=== PATIENT | female | born 1995 | race Caucasian/White ===

== ENCOUNTER 2020-10-02 13:34 | Outpatient (CLI) | payer OTHER, SELFPAY ==
--- NOTE | ~2020-10-02 | US_ITS ---
EXAMINATION: US OB follow up DATE: 10/02/2020 14:07 INDICATION: Routine care, third trimester TECHNIQUE: Real-time ultrasound of the pelvis was performed. The interpreting radiologist was not pre sent for the study. COMPARISON: None. FINDINGS: There is a single living fetus in vertex presentation. The placenta is anterior. card iac activity and movement are noted. heart rate is 136 beats per minute (bpm). The amniot ic fluid index is subjectively normal. The following biometric data were obtained: Biparietal diameter (BPD): 8.5 cm; head circumference (HC): 30.0 cm; abdominal circumference (AC): 27 .9 cm; femur length (FL): 6.3 cm. These measurements are concordant. Estimated weight is 1993 g +/- 298 g, which correlates with the 30th percentile when 11/21/2020 is used as estimated date of delivery. As single measurements, these parameters are each equal to the following estimated gestational ages w ith ranges of +/- 2 standard deviations: BPD: 34 weeks 3 days +/- 3 weeks 1 days. HC: 33 weeks 3 days +/- 3 weeks 0 days. AC: 32 weeks 0 days +/- 3 weeks 0 days. FL: 32 weeks 4 days +/- 3 weeks 0 days. estimated gestational age based solely on measurements from this exam is 33 weeks 1 days +/- 2 weeks 2 days. IMPRESSION: 1. Single living fetus in vertex presentation. 2. Estimated weight is 1993 g +/- 298 g, which correlates with the 30th percentile when 11/22/19 21 is used as estimated date of delivery. Reviewed, dictated and finalized at location A. IMPRESSION: 1. Single living fetus in vertex presentation. 2. Estimated weight is 1993 g +/- 298 g, which correlates with the 30th p ercentile when 11/21/2020 is used as estimated date of delivery.
== END 2020-10-02 13:35 | disposition home or self-care (01) ==
PROVIDERS: PCP Obstetrics & Gynecology; Visit Provider Obstetrics & Gynecology
DX: Z34.90 Encounter for supervision of normal pregnancy, unspecified, unspecified trimester (principal)
CPT/HCPCS: 76816

== ENCOUNTER 2020-11-06 04:40 | Inpatient (IN) | payer OTHER, SELFPAY ==
[2020-11-06] VITALS (177 sets, daily range): BP systolic 80–131; BP diastolic 51–96; PULSE 34–131; RESP 16; TEMP 35.5–37.3; O2SAT 96–100; BMI 24.7
--- NOTE | 2020-11-06 05:26 | LDADM ---
This patient, Shawna Martin, was admitted to Labor/Delivery/Recovery 103 on 11/06/20 at 04:40. Plans for labor, pain management and were discussed with patient. Patient/family oriented to hospital policies and general routines including ID bracelet, bed and alarms, visiting hours, pain management, procedures, bathroom and other care routines, personal items, smoking policy, room service/diet and guest tray routines, security routines, and visiting hours. Patient/Family are encouraged to report perceived risks to care and to ask questions if they do not understand what they are told or what they should do. See OBIX for further documentation.
[2020-11-06 05:28] LABS: Basophils Percent Auto 0.2 % (0.2-1.2); Eosinophils Absolute Auto 0.1 K/mm3 (0-0.3); Eosinophils Percent Auto 1.2 % (0-4.4); Hematocrit 29.8 % (37.0-47.0); Hemoglobin 9.6 g/dL (12.0-15.0); Immature Granulocyte Absolute 0.06 K/mm3 (0.00-0.031); Immature Granulocyte Percent A 0.6 % (0-0.5); Immature Platelet Fraction Pct 27.6 % (0.9-11.2); Lymphocytes Absolute Auto 2.03 K/mm3 (0.9-3.2); Lymphocytes Percent Auto 21.8 % (18.3-44.2); Mean Corpuscular HGB Conc 32.2 g/dl (32-36); Mean Corpuscular Volume 83.7 fl (80-100); Mean Platelet Volume 14.2 fl (7.4-10.4); Monocytes Absolute Auto 0.8 K/mm3 (0.1-0.6); Monocytes Percent Auto 8.7 % (2.6-8.5); Neutrophils Absolute Auto 6.3 K/mm3 (1.3-6.7); Neutrophils Percent Auto 67.5 % (45.5-73.1); Platelet Count Result 136 k/mm3 (150-375); Red Blood Count 3.56 M/mm3 (4.2-5.4); Red Cell Distribution Width 12.6 % (11.5-14.5); White Blood Count 9.3 K/mm3 (4.5-10.0)
--- NOTE | 2020-11-06 06:12 | PM.IMHP ---
H&P: HPI History of Present Illness Date/Time: 11/06/20 06:12 25yo, WF, with h/o of asthma, hyperthyroidism, hypercholesterolemia, PCOS, depression, ADHD who has CHOLESTASIS OF at 38weeks EGA. Patient is now being admitted for induction of labor per [facility] recommendations. I have explained her condition procedure and risk involved including but not limited to bleeding, infection, injury to bladder bowel baby, dvt, pneumonia wound infection uti shoulder dystocia post hemorrhage and the risk of anethesia. She understands accepts and agrees to proceed. 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 Dr Ochoa, [facility], yes to epidural, Baby girl name is CARMELA Chief Complaint: term , cholestasis and HELLP syndrome Review of Systems Review of Systems: All systems reviewed & are unremarkable except as noted in HPI and below Constitutional: Constitutional: Reports no additional constitutional complaints Eyes: Eyes: Reports no additional eye complaints ENT: Reports system reviewed and no additional complaints, except as documented Cardiovascular: Cardiovascular: Reports no additional cardiovascular complaints Respiratory: Respiratory: Reports no additional respiratory complaints Gastrointestinal: Gastrointestinal: Reports no additional gastrointestinal complaints Genitourinary: Genitourinary: Reports no additional female genitourinary complaints Musculoskeletal: Musculoskeletal: Reports no additional musculoskeletal complaints Integumentary/Breasts: Skin/Breast: Reports pruritus, Reports new lesions and Reports rash Neurologic: Reports system reviewed and no additional complaints, except as documented Psychiatric: Psychiatric: Reports no additional psychiatric complaints Endocrine: Endocrine: Reports no additional endocrine complaints Hematologic/Lymphatic: Hematologic/Lymphatic: Reports no additional hematologic/lymphatic complaints Allergic/Immunologic: Allergic/Immunologic: Reports no additional allergic/immunologic complaints [facility] Past Medical History Medical History (Updated 11/06/20 @ 07:12 by Davidson Ribeiro MD) ADHD Asthma BV (bacterial vaginosis) Cholestasis during in third trimester Depressive disorder HELLP (hemolytic anemia/elev liver enzymes/low platelets in ) History of hyperthyroidism PCOS (polycystic ovarian syndrome) Term Vaginal delivery 04/11/2017139.26 lbs.11 oz.[facility]inalFull [facility] Family History Family History Mother Family history of obesity Patient's mother is in good health Family history of osteoporosis Asthma Family history of alcoholism Family history of ulcerative colitis Family history of hepatitis Family history of chronic obstructive pulmonary disease Family history of malignant neoplasm of bone Family history of attention deficit hyperactivity disorder (ADHD) Father Family history of blood dyscrasia Family history of mental disorder Hypertension Family history of hepatitis Family history of chronic obstructive pulmonary disease Family history of bipolar disorder Sibling Depression Family history of attention deficit hyperactivity disorder (ADHD) Social History Social History Smoking status: Never smoker Second hand tobacco smoke exposure: No Smoking end date: 05/15/12 Alcohol intake: never Substance use: current Living arrangements: with family Occupation/Education: unemployed Gender identity (if verbalized by the patient): Female Sexual Orientation (if Verbalized by the Patient): Straight or Heterosexual Spiritual care concerns: No Agree to blood products: Yes Meds Roxane
[2020-11-06] MEDS: LACTATED RINGERS 1,000 ML 125 ML IV CONT ×3 (06:34→16:04)
--- NOTE | 2020-11-06 06:34 | WPDHPUPDATE1 ---
History and Physical Update Update Date/Time: 11/06/20 06:34 History and Physical has been reviewed, including an updated exam of the patient. There are NO changes in the patient's condition. Risks, benefits, and alternatives have been discussed and questions answered. Patient agrees to proceed with procedure. 25yo, WF, with h/o of asthma, hyperthyroidism, hypercholesterolemia, PCOS, depression, ADHD who has CHOLESTASIS OF at 38weeks EGA. Patient is now being admitted for induction of labor per [facility] recommendations. I have explained her condition procedure and risk involved including but not limited to bleeding, infection, injury to bladder bowel baby, dvt, pneumonia wound infection uti shoulder dystocia post hemorrhage and the risk of anethesia. She understands accepts and agrees to proceed. 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
--- NOTE | 2020-11-06 06:34 | WPDOBADMIT ---
Obstetrics - Admit Note Admission Note: record reviewed. No pertinent additions to the history and/or any subsequent changes in the physical findings that are not consistent with the expected course of the were found. Additions to the history and/or subsequent changes in the physical findings follow. None. 25yo, WF, with h/o of asthma, hyperthyroidism, hypercholesterolemia, PCOS, depression, ADHD who has CHOLESTASIS OF at 38weeks EGA. Patient is now being admitted for induction of labor per [facility] MFM recommendations. I have explained her condition procedure and risk involved including but not limited to bleeding, infection, injury to bladder bowel baby, dvt, pneumonia wound infection uti shoulder dystocia post hemorrhage and the risk of anethesia. She understands accepts and agrees to proceed. 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
[2020-11-06] MEDS: OXYTOCIN 30 UNITS/NS 500 ML 30 UNITS/500 ML BAG IV CONT (06:35)
[2020-11-06] MEDS: ONDANSETRON INJ 4 MG/2 ML VIAL IV PUSH (07:50)
[2020-11-06 07:59] LABS: Amphetamine Screen Urine Negative (Negative); Barbiturate Screen Urine Negative (Negative); Benzodiazepines Screen Urine Negative (Negative); Cannabinoid Screen Urine Positive (Negative); Cocaine Screen Urine Negative (Negative); Methadone Screen Urine Negative (Negative); Opiate Screen Urine Negative (Negative); Phencyclidine Screen Urine Negative (Negative)
[2020-11-06 09:27] LABS: Rapid Plasma Reagin Non-Reactive (NonReactive)
--- NOTE | 2020-11-06 09:28 | WPDANESEPPF ---
Anes - Initial Pre Proc Eval Date/Time: 11/06/20 09:28 Surgeon: Davidson Ribeiro MD Pre Op Diagnosis: Induction of Labor Patient Data Age: 25 Gender: F Height: Weight: Last Vital Signs Temp 36.8 C 11/06/20 06:59 Pulse 55 L 11/06/20 09:01 BP 122/84 11/06/20 09:01 Allergies Allergy/AdvReac Type Severity Reaction Status Date / Time No Known Allergies Allergy Unverified 07/22/19 12:44 Laboratory Tests 11/06/20 11/06/20 11/06/20 05:11 05:11 05:11 WBC 9.3 K/mm3 K/mm3 (4.5-10.0) RBC 3.56 M/mm3 L M/mm3 (4.2-5.4) Hgb 9.6 g/dL L g/dL (12.0-15.0) Hct 29.8 % L % (37.0-47.0) MCV 83.7 fl fl (80-100) MCH 27.0 pg pg (26-34) MCHC 32.2 g/dl g/dl (32-36) RDW 12.6 % % (11.5-14.5) Plt Count 136 k/mm3 L k/mm3 (150-375) MPV 14.2 fl H fl (7.4-10.4) Immature Gran % (Auto) 0.6 % H % (0-0.5) Neut % (Auto) 67.5 % % (45.5-73.1) Lymph % (Auto) 21.8 % % (18.3-44.2) [place] % (Auto) 8.7 % H % (2.6-8.5) Eos % (Auto) 1.2 % % (0-4.4) Baso % (Auto) 0.2 % % (0.2-1.2) Lymph # (Auto) 2.03 K/mm3 K/mm3 (0.9-3.2) [place] # (Auto) 0.8 K/mm3 H K/mm3 (0.1-0.6) Eos # (Auto) 0.1 K/mm3 K/mm3 (0-0.3) Baso # (Auto) 0.0 K/mm3 K/mm3 (0.0-0.1) Abs Immat Gran (auto) 0.06 K/mm3 H K/mm3 (0.00-0.031) Absolute Neuts (auto) 6.3 K/mm3 K/mm3 (1.3-6.7) Absolute Nucleated RBC 0.0 K/mm3 K/mm3 (0.0-0.012) Nucleated RBC % 0.0 % % (0.0-0.2) % Immature Plt Fraction 27.6 % H % (0.9-11.2) Urine Opiates Screen Urine Methadone Screen Ur Barbiturates Screen Ur Phencyclidine Scrn Ur Amphetamine Screen U Benzodiazepines Scrn Urine Cocaine Screen U Cannabinoids Screen RPR Non-reactive (NonReactive) Blood Type B Positive Antibody Screen Negative 11/06/20 06:36 WBC RBC Hgb Hct MCV MCH MCHC RDW Plt Count MPV Immature Gran % (Auto) Neut % (Auto) Lymph % (Auto) [place] % (Auto) Eos % (Auto) Baso % (Auto) Lymph # (Auto) [place] # (Auto) Eos # (Auto) Baso # (Auto) Abs Immat Gran (auto) Absolute Neuts (auto) Absolute Nucleated RBC Nucleated RBC % % Immature Plt Fraction Urine Opiates Screen Negative (Negative) Urine Methadone Screen Negative (Negative) Ur Barbiturates Screen Negative (Negative) Ur Phencyclidine Scrn Negative (Negative) Ur Amphetamine Screen Negative (Negative) U Benzodiazepines Scrn Negative (Negative) Urine Cocaine Screen Negative (Negative) U Cannabinoids Screen Positive A (Negative) RPR Blood Type Antibody Screen Patient hx anesthesia problems: none Family hx anesthesia problems: none PMFSH Past Medical History Medical History (Updated 11/06/20 @ 07:12 by Davidson Ribeiro MD) ADHD Asthma BV (bacterial vaginosis) Cholestasis during in third trimester Depressive disorder HELLP (hemolytic anemia/elev liver enzymes/low platelets in ) History of hyperthyroidism PCOS (polycystic ovarian syndrome) Term Vaginal delivery 04/11/2017139.26 lbs.11 oz.[facility]inalFull [facility] Family [facility] Family History Mother Family history of obesity Patient's mother is in good health Family history of osteoporosis Asthma Family history of alcoholism Family history of ulcerative colitis Family history of hepatitis Family history of chronic obstructive pulmonary disease
--- NOTE | 2020-11-06 09:50 | PM.OBPNLAB ---
Pain Control Date/time seen: 11/06/20 08:50 Pain control: tolerating well Pelvic Exam Dilation (cm): 3 Effacement (%): 50 station: -2 Amniotic membrane status: Intact Contractions Monitor mode: External Contraction frequency: 5 Contraction duration: 45 Contraction pattern: Regular Contraction phase: Contraction Contraction intensity: Strong/Firm Status status: Category l Assessment and Plan Pitocin rate (mU/min): 16 Assessment: active labor Plan: continuous present management
--- NOTE | 2020-11-06 09:58 | PM.OBPNLAB ---
Pain Control Date/time seen: 11/06/20 09:58 Pain control: tolerating well and epidural Pelvic Exam Dilation (cm): 3 Effacement (%): 50 station: -2 Amniotic membrane status: Ruptured (AROM Clear IUPC placed) Contractions Monitor mode: Internal Contraction frequency: 5 Contraction duration: 45 Contraction pattern: Regular Contraction phase: Contraction Contraction intensity: Strong/Firm Status status: Category l Assessment and Plan Pitocin rate (mU/min): 10 Assessment: induction ongoing Plan: continuous present management
[2020-11-06 10:28] LABS: Alanine Aminotransferase 125 U/L (4-35); Albumin Level 2.8 g/dL (3.5-5.1); Alkaline Phosphatase 208 U/L (38-126); Anion Gap 4 mmol/L (8-16); Aspartate Amino Transferase 98 U/L (14-36); Bilirubin,Total 0.5 mg/dL (0.2-1.3); Blood Urea Nitrogen 4 mg/dL (7-17); Calcium 8.4 mg/dL (8.4-10.2); Carbon Dioxide 24 mmol/L (22-30); Chloride 109 mmol/L (98-107); Estimated Glomerular Filt Rate > 60; Glucose 80 mg/dL (65-105); Potassium 2.9 mmol/L (3.4-5.0); Sodium 137 mmol/L (137-145); Uric Acid 5.6 mg/dL (2.5-7.5)
--- NOTE | 2020-11-06 16:26 | PM.OBPNLAB ---
Pain Control Date/time seen: 11/06/20 0432 Pain control: tolerating well and epidural Pelvic Exam Dilation (cm): 10 Effacement (%): 100 station: +2 Amniotic membrane status: Ruptured (AROM Clear IUPC placed) Contractions Monitor mode: Internal Contraction frequency: 2 Contraction duration: 60 Contraction pattern: Regular Contraction phase: Contraction Contraction intensity: Strong/Firm Status status: Category l Assessment and Plan Pitocin rate (mU/min): 20 Assessment: active labor and other ( complete stage I) Plan: continuous present management Comments: begin stage II anticipate vaginal delivery soon
[2020-11-06] MEDS: miSOPROStol 200 MCG TABLET 800 MCG (16:46)
--- NOTE | 2020-11-06 17:07 | PM.OBPRVD ---
OB - Delivery Note Procedure Delivery date: 11/06/20 Procedure: normal spontaneous vertex vaginal delivery a viable female infant and placenta events: Labor Induction Intrapartal events: HELLP Syndrome and Other ( cholestasis of ) Induction method: per pitocin protocol Delivery augmentation: rupture of membranes Delivery monitor: external FHT and internal uterine Route of delivery: Episiotomy description: None Laceration Description: None Specimen: Yes ( placenta, cord blood, cord blood gases) Quantitative Blood Loss (ml): 400 Anesthesia type: Epidural Disposition: floor Complications: none uterine atony treated with internal rectal Cytotec and intramuscular Hemabate Narrative: complete cervical dilation patient prepped in the usual sterile fashion pushed 2nd stage of labor with the normal spontaneous vertex vaginal delivery viable female infant over an intact perineum without difficulty of shoulder delivered and placed onto the maternal abdomen with spontaneous respirations and cry cord clamped and cut. Cord gas obtained cord blood obtained placenta was then delivered spontaneously intact with a three-vessel cord the uterus contracted with massage and blood clots removed from the intrauterine cavity there were no cuts tears or lacerations. Intrarectal Cytotec was given 800 micro g followed by Hemabate 250 micro g intramuscular for uterine atony. Patient tolerated procedure well in labor and delivery room 1. 0 3 stable condition. Counts correct complications none specimens pathology placenta. Baby to nursery in stable condition. Baby Date of : 11/06/20 Time of : 16:35 Weeks of gestation at delivery: 38 Infant gender: Female (NIXLY) Weight (pounds): 7 Weight (ounces): 0 presentation: vertex position: Left Occiput Transverse Placenta delivery description: Spontaneous and Normal Configuration cord vessel description: 3 Vessels score one minute: 7 score five minutes: 9 Narrative: baby cared for by nursery nurse taken to the nursery in stable condition normal transition
[2020-11-06] MEDS: IBUPROFEN 600 MG TABLET PO (19:21)
--- NOTE | 2020-11-06 19:24 | OBPPTRN ---
Patient transferred to post room #283 via wheelchair. Support person present. Oriented to unit, room, information board, rooming in, admission packet and security measures. Patient verbalizes understanding.
[2020-11-06] MEDS: POLYSACCHARIDE IRON COMPLEX 150 MG CAPSULE PO (20:01)
[2020-11-06] MEDS: BENZOCAINE 20% AER SPR (*SP) 56 GM CAN 1 SPRAY TOPICAL (20:02)
[2020-11-06] MEDS: WITCH HAZEL 40 PADS 1 PAD TOPICAL (20:02)
[2020-11-07] VITALS: BP 101/73; PULSE 68; RESP 16; TEMP 36.8; O2SAT 100
[2020-11-07] MEDS: IBUPROFEN 600 MG TABLET PO ×2 (02:05→11:45)
[2020-11-07 04:00] VITALS: BP 102/64; PULSE 75; RESP 16; TEMP 36.7; O2SAT 98
[2020-11-07 05:51] LABS: Hematocrit 25.3 % (37.0-47.0); Hemoglobin 8.2 g/dL (12.0-15.0)
[2020-11-07 06:09] LABS: Alanine Aminotransferase 102 U/L (4-35); Albumin Level 2.4 g/dL (3.5-5.1); Alkaline Phosphatase 172 U/L (38-126); Anion Gap 2 mmol/L (8-16); Aspartate Amino Transferase 98 U/L (14-36); Bilirubin,Total 0.4 mg/dL (0.2-1.3); Blood Urea Nitrogen 3 mg/dL (7-17); Calcium 7.7 mg/dL (8.4-10.2); Carbon Dioxide 23 mmol/L (22-30); Chloride 110 mmol/L (98-107); Estimated CRCL calculation 104 ml/min; Estimated Glomerular Filt Rate > 60; Glucose 67 mg/dL (65-105); Potassium 3.3 mmol/L (3.4-5.0); Sodium 135 mmol/L (137-145)
[2020-11-07 07:45] VITALS: BP 121/74; PULSE 70; RESP 18; TEMP 36.8
--- NOTE | 2020-11-07 08:27 | WPDANLDPN2 ---
Anes-Prog Note L&D Date/Time: 11/07/20 08:27 Comfortable throughout: labor Neuraxial method: epidural Epidural/Spinal procedure site: clean & non-tender Neuro status: Neuro function grossly intact. Cardiovascular status: normal Respiratory status: normal Airway patency: baseline Mental status: baseline Post-Op hydration status: normal Vital Signs: Last Vital Signs Temp 36.7 C 11/07/20 04:00 Pulse 75 11/07/20 04:00 Resp 16 11/07/20 04:00 BP 102/64 11/07/20 04:00 Pulse Ox 98 11/07/20 04:00 Pain score (VAS): none I/O: Intake & Output 11/06/20 11/07/20 11/07/20 23:59 07:59 15:59 Intake Total 1100 Output Total 1165 Balance -65 Post-procedural complaints: none Patient feedback: Patient satisfied with anesthetic care.
--- NOTE | 2020-11-07 08:38 | PM.OBPNVD ---
OB - PN: Subj Subjective Date/time seen: 11/07/20 08:38 Patient comments: no complaints, pain well controlled, tolerating diet and flatus present baby status: doing well feeding status: breast and bottle feeding OB - PN: Obj Data Labs CBC & Chem 7: 11/07/20 05:06 11/07/20 05:06 Labs: Laboratory Results - last 24 hr 11/06/20 11/06/20 11/07/20 05:11 10:07 05:06 Hgb 8.2 L Hct 25.3 L Sodium 137 Potassium 2.9 L Chloride 109 H Carbon Dioxide 24 Anion Gap 4 L BUN 4 L Creatinine 0.70 Estim Creat Clear Calc Not Reportable Estimated GFR > 60 Glucose 80 Uric Acid 5.6 Calcium 8.4 Total Bilirubin 0.5 AST 98 H ALT 125 H Alkaline Phosphatase 208 H Total Protein 6.0 L Albumin 2.8 L RPR Non-reactive 11/07/20 05:06 Hgb Hct Sodium 135 L Potassium 3.3 L Chloride 110 H Carbon Dioxide 23 Anion Gap 2 L BUN 3 L Creatinine 0.60 L Estim Creat Clear Calc 104 Estimated GFR > 60 Glucose 67 Uric Acid Calcium 7.7 L Total Bilirubin 0.4 AST 98 H ALT 102 H Alkaline Phosphatase 172 H Total Protein 5.0 L Albumin 2.4 L RPR OB - PN A/P Assessment and Plan (1) Term delivered: Code(s): O80 - Encounter for full-term uncomplicated delivery Status: Acute (2) HELLP (hemolytic anemia/elev liver enzymes/low platelets in ): Code(s): O14.20 - HELLP syndrome (HELLP), unspecified trimester Status: Acute (3) Cholestasis during in third trimester: Code(s): O26.613 - Liver and biliary tract disorders in , third trimester; K83.1 - Obstruction of bile duct Status: Acute Plan day: 1 Plan: routine care, discharge home and follow up 6 weeks Time Spent With Patient Time: Total time spent is greater than 50% in coordination of care (as documented) at patient's floor/unit and/or counseling patient: Time with patient: less than 15 minutes Review of Systems Review of Systems: All systems reviewed & are unremarkable except as noted in HPI and below Exam Const: General: cooperative, healthy appearing, comfortable, no acute distress, well developed, alert, awake and Physically active Nutritional Appearance: average body habitus Orientation/consciousness: patient oriented x3 Limitations: no limitations HENMT: Head: normal to inspection Eyes: General: appearance normal, both eyes and all related structures Neck: Neck: normal visual inspection Chest: Chest palpation & inspection: normal inspection of the chest Resp: Effort & Inspection: normal respiratory effort Cardio: Rate: regular rate Rhythm: regular rhythm GI: Inspection: normal to inspection GI Palp: Yes Soft to palpation Percussion: Yes normal to percussion Auscultation: normal bowel sounds : External Female Exam: normal external appearance Bimanual exam- vagina & uterus: non-tender Back/Spine/Pelvis: Back: no CVA tenderness Skin: General skin exam: normal color Neuro: General: patient oriented x3, gait normal, tone normal, moves all extremities, Normal light touch and pain sensation, no meningeal signs and no focal motor deficits Extrem: General: normal to inspection and full ROM Psych: Appearance: grossly normal Mental Status: mental status grossly normal Speech and movement: Normal speech and movement present Affect: normal affect Attitude: cooperative Thought process: Normal thought process present
--- NOTE | 2020-11-07 08:42 | PM.OBDSVD ---
DS: Admitting Diagnosis Admitting Diagnosis Admitting Diagnosis: 1) Term : Code(s): Z34.90 - Encounter for supervision of normal , unspecified, unspecified trimester Status: Acute (2) Cholestasis during in third trimester: Code(s): O26.613 - Liver and biliary tract disorders in , third trimester; K83.1 - Obstruction of bile duct Status: Acute (3) Elective induction of labor planned: Status: Acute (4) HELLP (hemolytic anemia/elev liver enzymes/low platelets in ): Code(s): O14.20 - HELLP syndrome (HELLP), unspecified trimester Status: Acute DS: Discharge Diagnosis Discharge Diagnosis (1) Term delivered: Code(s): O80 - Encounter for full-term uncomplicated delivery Status: Acute (2) HELLP (hemolytic anemia/elev liver enzymes/low platelets in ): Code(s): O14.20 - HELLP syndrome (HELLP), unspecified trimester Status: Acute (3) Elective induction of labor planned: Status: Acute (4) Cholestasis during in third trimester: Code(s): O26.613 - Liver and biliary tract disorders in , third trimester; K83.1 - Obstruction of bile duct Status: Acute OB - DS: Summary Hospital Course Time spent discussing smoking cessation with patient: 3 to 10 minutes OB Procedures : Ultrasound OB Procedures Intrapartum: Spontaneous Vag Delivery OB Procedures: : None Peripartum Data Infant Delivery Method: Natural Vaginal Laceration Description: None Episiotomy description: None complications: none Dayhoit 1: Gender: Female (NIXLY) Disposition of : home Status at Discharge Cognitive/behavioral status at discharge: normal Functional status at discharge: independent ambulation Overall status at discharge: patient is back to baseline Time Spent with Patient Time attestation: Total time spent providing and/or coordinating discharge services: Time spent: Less than 30 minutes Exam Const: General: cooperative, healthy appearing, comfortable, no acute distress, well developed, alert, awake and Physically active Nutritional Appearance: average body habitus Orientation/consciousness: patient oriented x3 Limitations: no limitations HENMT: Head: normal to inspection Eyes: General: appearance normal, both eyes and all related structures Neck: Neck: normal visual inspection Chest: Chest palpation & inspection: normal inspection of the chest Resp: Effort & Inspection: normal respiratory effort Cardio: Rate: regular rate Rhythm: regular rhythm GI: Inspection: normal to inspection : External Female Exam: normal external appearance Back/Spine/Pelvis: Back: no CVA tenderness Skin: General skin exam: normal color Neuro: General: patient oriented x3, gait normal, tone normal and moves all extremities Extrem: General: normal to inspection and full ROM Psych: Appearance: grossly normal Mental Status: mental status grossly normal Speech and movement: Normal speech and movement present Affect: normal affect Attitude: cooperative Thought process: Normal thought process present Thought content: Yes Normal thought content present Insight: Good insight present (Psych) Judgement: Good judgement present (Psych) DS: Data Data Completed and Pending Pending studies at discharge: Pending at discharge 11/06/20 16:39 Surgical [PTH] Routine Labs on day of discharge: Labs from last 24 hours 11/07/20 11/07/20 11/06/20 05:06 05:06 10:07 Hgb 8.2 L Hct 25.3 L Sodium 135 L 137 Potassium 3.3 L 2.9 L Chloride 110 H 109 H Carbon Dioxide 23 24 Anion Gap 2 L 4 L BUN 3 L 4 L Creatinine 0.60 L 0.70 Estim Creat Clear Calc 104 Not Reportable Estimated GFR > 60 > 60 Glucose 67 80 Uric Acid 5.6 Calcium 7.7 L 8.4 Total Bilirubin 0.4 0.5 AST 98 H 98 H ALT 102 H 125 H Alkaline Phosphat
--- NOTE | 2020-11-07 10:58 | PCCCNOTE ---
Received referral for positive THC on pt. and baby. Meconium is pending. Met with pt. and father of baby at bedside. Pt. confirms THC use for anxiety. She states having discussed same with her doctor. Pt. lives with father of baby and their 3 year old. They state having all needed items to care for at discharge home. They have support from local family and friends. She denies any history with DCFS. She denies use of any other substances. Reported pt. situation to DCFS and it does not meet criteria for investigation; information will be kept on file. Intake #[id number]. Offered pt. additional resources and she accepted same. Encouraged she contact any/all of interest. Nursing states no further concerns. No further care coordination needs indicated at this time.
[2020-11-07] MEDS: POLYSACCHARIDE IRON COMPLEX 150 MG CAPSULE PO ×2 (11:45→18:53)
[2020-11-07] MEDS: MULTIVIT/MIN/PREN/FOL AC/IRON TABLET 1 TAB PO (11:45)
[2020-11-07] MEDS: DOCUSATE SODIUM 100 MG CAPSULE PO ×2 (11:45→18:53)
[2020-11-07] MEDS: MEASLES,MUMPS,RUBELLA VACCINE 0.5 ML VIAL SUB-Q (11:45)
[2020-11-07 11:52] VITALS: BP 100/59; PULSE 67; RESP 16; TEMP 37.2
[2020-11-07 16:25] VITALS: BP 119/75; PULSE 66; RESP 16; TEMP 36.8
== END 2020-11-07 19:35 | disposition home or self-care (01) | DRG 560 ==
LOC: ANHLDR 04:46 → ANHOB2 19:55
PROVIDERS: Admitting Provider Obstetrics & Gynecology; Visit Provider Obstetrics & Gynecology
DX: O14.24 HELLP syndrome, complicating childbirth (principal); Z37.0 Single live birth; Z3A.37 37 weeks gestation of pregnancy; O26.62 Liver and biliary tract disorders in childbirth; K83.1 Obstruction of bile duct; O99.52 Diseases of the respiratory system complicating childbirth; J45.909 Unspecified asthma, uncomplicated; O99.344 Other mental disorders complicating childbirth; F90.9 Attention-deficit hyperactivity disorder, unspecified type; F32.9 Major depressive disorder, single episode, unspecified; O99.284 Endocrine, nutritional and metabolic diseases complicating childbirth; E28.2 Polycystic ovarian syndrome; E05.90 Thyrotoxicosis, unspecified without thyrotoxic crisis or storm; E78.00 Pure hypercholesterolemia, unspecified; O72.1 Other immediate postpartum hemorrhage
CPT/HCPCS: 36415; 80053; 80307; 84550; 85014; 85018; 85025; 85055; 86592; 86850; 86900; 86901; 88307; 90710; A9270; J2405; J2590; J2795; J7120

== ENCOUNTER 2022-02-22 18:00 | Emergency (ER) | payer OTHER, SELFPAY ==
--- NOTE | ~2022-02-22 | XR_ITS ---
EXAMINATION: XR chest 2V Exam Date/Time: 02/22/2022 19:20 CDT HISTORY: cough, fever X 3 DAYS, MIDSTERNAL CHEST PAIN, HX ASTHMA Comparison: None available. RESULT: Lines, tubes, and devices: None. Lungs and pleura: Diffuse reticular nodular opacities and cuffing. Cardiomediastinal silhouette: Stable. Other: No acute osseous or upper abdominal finding. IMPRESSION: tree-in-bud opacities as can be seen with atypical infection (MAC, TB, fungal), ABPA, airways disease (CF, bronchiectasis), and aspiration. Loculated as. Reviewed, dictated and finalized at location K.
[2022-02-22 18:25] VITALS: BP 103/75; PULSE 68; RESP 18; TEMP 36.5; O2SAT 98
--- NOTE | 2022-02-22 18:31 | ED.FEVER ---
HPI - Fever General Chief Complaint: Fever Stated Complaint: fever/cough Time Seen by Provider: 02/22/22 18:16 History of Present Illness HPI Narrative: 26-year-old female with a history of asthma presents the emergency room with her significant other and 2 children for evaluation of the fever, sinus congestion and postnasal drip, body aches, generalized fatigue. Patient states that she has been experiencing symptoms for 3 days. Has been alternating Tylenol and ibuprofen to alleviate her fever and body aches. Related Data Allergies Allergy/AdvReac Type Severity Reaction Status Date / Time No Known Allergies Allergy Unverified 07/22/19 12:44 Review of Systems Review of Systems: CONSTITUTIONAL: Reports fever, chills, or sweats. EYES: Denies visual changes, redness, or discharge. ENT: Reports rhinorrhea, congestion, sore throat, or otalgia. CARDIOVASCULAR: Denies chest pain, palpitations, or edema. RESPIRATORY: Denies cough or dyspnea. GASTROINTESTINAL: Denies abdominal pain, nausea, vomiting, or diarrhea. GENITOURINARY: Denies dysuria or hematuria. SKIN: Denies rash or itching. MUSCULOSKELETAL: Denies back pain, joint pain, or myalgia. NEUROLOGIC: Denies headache, numbness, dizziness, or weakness. PSYCHIATRIC: Denies anxiety or depression. [facility] Past Medical History Medical History ADHD Asthma BV (bacterial vaginosis) Cholestasis during in third trimester Depressive disorder HELLP (hemolytic anemia/elev liver enzymes/low platelets in ) History of hyperthyroidism PCOS (polycystic ovarian syndrome) Term Vaginal delivery 04/11/2017139.26 lbs.11 oz.[facility]inalFull [facility] Family [facility] Family History Mother Family history of obesity Family history of osteoporosis Asthma Family history of alcoholism Family history of ulcerative colitis Family history of hepatitis Family history of chronic obstructive pulmonary disease Family history of malignant neoplasm of bone Family history of attention deficit hyperactivity disorder (ADHD) Patient's mother is in good health Father Family history of blood dyscrasia Family history of mental disorder Hypertension Family history of hepatitis Family history of chronic obstructive pulmonary disease Family history of bipolar disorder Sibling Depression Family history of attention deficit hyperactivity disorder (ADHD) Social History Social History Smoking status: Never smoker Second hand tobacco smoke exposure: No Smoking end date: 05/15/12 Alcohol intake: never Substance use: current Gender identity (if verbalized by the patient): Female Sexual Orientation (if Verbalized by the Patient): Straight or Heterosexual Spiritual care concerns: No Agree to blood products: Yes Exam Narrative: GENERAL: Ill-appearing, well-nourished, no physical limitations, and in no acute distress. HEAD: Normocephalic, atraumatic. EYES: Conjunctivae normal, PERRLA and EOMI. ENT: External nose normal, Nares clear, no rhinorrhea or epistaxis. Mucous membranes moist. Oropharynx without tonsillar hypertrophy exudate or other lesions. External ears normal, bilateral TMs normal bilaterally NECK: Supple. No adenopathy or masses. CHEST: Clear to auscultation. No respiratory distress. No wheezes rales or rhonchi. HEART: Regular rate and rhythm. No murmur heard. Normal peripheral pulses. ABDOMEN: Soft, nontender, nondistended, normal active bowel sounds. EXTREMITIES: Normal range of motion. No edema. No clubbing or cyanosis SKIN: Warm, dry, no rash. No noted wounds NEURO: No focal deficits. Alert and oriented x3. MAEW. CN's II-XI intact bilaterally, normal gait PSYCH: Cooperative. Normal mood and affect. Course Vital Signs Vital sig
[2022-02-22 19:05] LABS: Influenza A QL RT-PCR Negative (Negative); Influenza B QL RT-PCR Negative (Negative); SARS-CoV-2 RNA PCR Negative
== END 2022-02-22 20:05 | disposition home or self-care (01) ==
PROVIDERS: Emergency Provider Nurse Practitioner Family
DX: J06.9 Acute upper respiratory infection, unspecified (principal); Z20.822 Contact with and (suspected) exposure to COVID-19; F90.9 Attention-deficit hyperactivity disorder, unspecified type; J45.909 Unspecified asthma, uncomplicated; F32.9 Major depressive disorder, single episode, unspecified
CPT/HCPCS: 71046; 87502; 99283; C9803; U0003; U0005

== ENCOUNTER 2023-07-06 21:49 | Emergency (ER) | payer OTHER, SELFPAY ==
--- NOTE | ~2023-07-06 | XR_ITS ---
EXAMINATION: XR chest 2V DATE: 07/06/2023 23:00 INDICATION: Dyspnea. TECHNIQUE: Frontal and lateral views of the chest were obtained. COMPARISON: Chest 2 views 02/22/2022 FINDINGS: There is no pneumonia, pleural effusion, or pneumothorax. The heart size is normal. IMPRESSION: 1. No acute cardiopulmonary disease. Reviewed, dictated and finalized at location E. 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
--- NOTE | ~2023-07-06 | CT_ITS ---
CT Scan of the Chest without Contrast: Clinical Indication: Chest pain Technique: Contiguous sections were acquired throughout the chest without intravenous contrast. Dose reduction technique was used on this scan by utilizing automated exposure control and iterative recon struction technique. The dose-length product (DLP) was 138.40 mGy-cm. Findings: There is no evidence of any significant mediastinal, hilar or axillary lymphadenopathy. The mediastin al soft tissues appear normal. There is no evidence of pleural or pericardial effusion. The lungs are clear. No pulmonary nodules or infiltrates are noted. Images through the upper abdomen reveal no abnormalities. Osseous structures are intact. Impression: No significant abnormalities seen. Reviewed, dictated and finalized at location . 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
[2023-07-06 21:51] VITALS: BP 112/67; PULSE 77; RESP 20; TEMP 36.8; O2SAT 100
--- NOTE | 2023-07-07 02:05 | ECG_ITS ---
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
--- NOTE | 2023-07-07 02:49 | ED.GENADULT ---
HPI - General Adult General Chief complaint: Unspecified <CONCHITA Yun Last Filed: 07/07/23 03:20> Stated complaint: hit in chest by son- hard to breath <CONCHITA Yun Last Filed: 07/07/23 03:20> Time Seen by Provider: 07/06/23 23:59 <Carole Montalvo PA-C - Last Filed: 07/07/23 03:20> Source: patient <CONCHITA Yun Last Filed: 07/07/23 03:20> Mode of arrival: ambulatory <CONCHITA Yun Last Filed: 07/07/23 03:20> Limitations: no limitations <CONCHITA Yun Last Filed: 07/07/23 03:20> History of Present Illness HPI narrative: Patient is a 28-year-old female who presents ED with report of anterior chest pain. Patient reports she was wrestling with her son on Monday when send fell backwards on top of her chest. She complains of pain to her anterior and right-sided chest wall since then, worse with movement and deep breathing. Reports mild difficulty breathing due to pain. Denies feeling short of breath. Patient has been taking ibuprofen for her symptoms with minimal relief. Denies any cough or cold symptoms. Denies any other injuries. <Carole Montalvo PA-C - Last Filed: 07/07/23 03:20> Related Data Allergies/adverse reactions: Allergies Allergy/AdvReac Type Severity Reaction Status Date / Time No Known Allergies Allergy Verified 07/06/23 21:55 <Carole Montalvo PA-C - Last Filed: 07/07/23 03:20> Review of Systems Review of Systems: CONSTITUTIONAL: Denies fever, chills, or sweats. CARDIOVASCULAR: See HPI RESPIRATORY: See HPI. <CONCHITA Yun Last Filed: 07/07/23 03:20> All systems reviewed & are unremarkable except as noted in HPI and below <CONCHITA Yun Last Filed: 07/07/23 03:20> [facility] Past Medical History Medical History: Medical History ADHD Asthma BV (bacterial vaginosis) Cholestasis during in third trimester Depressive disorder HELLP (hemolytic anemia/elev liver enzymes/low platelets in ) History of hyperthyroidism PCOS (polycystic ovarian syndrome) Term Vaginal delivery 04/11/2017139.26 lbs.11 oz.[facility]inalFull [facility] <Carole Montalvo PA-C - Last Filed: 07/07/23 03:20> Family History Family History: Family History Mother Family history of obesity Family history of osteoporosis Asthma Family history of alcoholism Family history of ulcerative colitis Family history of hepatitis Family history of chronic obstructive pulmonary disease Family history of malignant neoplasm of bone Family history of attention deficit hyperactivity disorder (ADHD) Patient's mother is in good health Father Family history of blood dyscrasia Family history of mental disorder Hypertension Family history of hepatitis Family history of chronic obstructive pulmonary disease Family history of bipolar disorder Sibling Depression Family history of attention deficit hyperactivity disorder (ADHD) <Carole Montalvo PA-C - Last Filed: 07/07/23 03:20> Social History Social History: Social History Smoking status: Never smoker Second hand tobacco smoke exposure: No Smoking end date: 05/15/12 Alcohol intake: never Substance use: current Living arrangements: with family Occupation/Education: unemployed Gender identity (if verbalized by the patient): Female Sexual Orientation (if Verbalized by the Patient): Straight or Heterosexual Spiritual care concerns: No Agree to blood products: Yes <Carole Montalvo PA-C - Last Filed: 07/07/23 03:20> Exam Narrative: GENERAL: Well appearing, well-nourished, non-toxic, in no acute distress. HE
[2023-07-07] MEDS: HYDROcodone/acetaminophen (*CRX) 5-325 MG TABLET 1 TAB PO (02:58)
[2023-07-07 03:00] VITALS: BP 110/84; PULSE 78; RESP 15; O2SAT 100
[2023-07-07 04:48] VITALS: BP 104/70; PULSE 74; RESP 18; O2SAT 99
== END 2023-07-07 04:49 | disposition home or self-care (01) ==
PROVIDERS: Emergency Provider Student in an Organized Health Care Education/Training Program
DX: S20.211A Contusion of right front wall of thorax, initial encounter (principal); J45.909 Unspecified asthma, uncomplicated; E28.2 Polycystic ovarian syndrome; Z87.891 Personal history of nicotine dependence; W51.XXXA Accidental striking against or bumped into by another person, initial encounter; Y93.83 Activity, rough housing and horseplay
CPT/HCPCS: 71046; 71250; 81025; 93005; 99284; A9270

== ENCOUNTER 2024-02-13 01:18 | Day surgery (SDC) | payer OTHER, SELFPAY ==
[2024-02-13] VITALS (9 sets, daily range): BP systolic 92–129; BP diastolic 52–87; PULSE 73–116; RESP 18–22; TEMP 36.3–36.4; O2SAT 98–100
[2024-02-13 01:38] LABS: Basophils Percent Auto 0.4 % (0.2-1.2); Eosinophils Absolute Auto 0.1 K/mm3 (0-0.3); Eosinophils Percent Auto 1.3 % (0-4.4); Hematocrit 40.7 % (37.0-47.0); Hemoglobin 13.6 g/dL (12.0-15.0); Immature Granulocyte Absolute 0.03 K/mm3 (0.00-0.031); Immature Granulocyte Percent A 0.4 % (0-0.5); Lymphocytes Absolute Auto 2.53 K/mm3 (0.9-3.2); Lymphocytes Percent Auto 33.5 % (18.3-44.2); Mean Corpuscular HGB Conc 33.4 g/dl (32-36); Mean Corpuscular Hemoglobin 30.6 pg (26-34); Mean Corpuscular Volume 91.7 fl (80-100); Mean Platelet Volume 11.3 fl (7.4-10.4); Monocytes Absolute Auto 0.6 K/mm3 (0.1-0.6); Monocytes Percent Auto 7.4 % (2.6-8.5); Neutrophils Absolute Auto 4.3 K/mm3 (1.3-6.7); Platelet Count Result 207 k/mm3 (150-375); Red Blood Count 4.44 M/mm3 (4.2-5.4); Red Cell Distribution Width 12.6 % (11.5-14.5); White Blood Count 7.6 K/mm3 (4.5-10.0)
[2024-02-13 01:49] LABS: Alanine Aminotransferase 11 U/L (6-35); Albumin Level 4.2 g/dL (3.5-5.1); Alkaline Phosphatase 65 U/L (38-126); Anion Gap 7 mmol/L (4-12); Aspartate Amino Transferase 24 U/L (14-36); Bilirubin,Total 0.3 mg/dL (0.2-1.3); Blood Urea Nitrogen 11 mg/dL (7-17); Calcium 9.3 mg/dL (8.4-10.2); Carbon Dioxide 25 mmol/L (22-30); Chloride 105 mmol/L (98-107); Estimated CRCL calculation 70 ml/min; Estimated Glomerular Filt Rate > 60; Glucose 89 mg/dL (65-110); Potassium 3.7 mmol/L (3.4-5.0); Sodium 137 mmol/L (137-145)
[2024-02-13 01:51] LABS: Prothrombin Time 13.9 Seconds (11.1-14.7)
[2024-02-13 01:53] LABS: Partial Thromboplastin Time 23.7 Seconds (22.3-36.8)
[2024-02-13 02:06] LABS: Beta HCG Quantitative < 2.39 mIU/ML
--- NOTE | 2024-02-13 04:55 | ED.FEMALEGU ---
HPI - Female Genitourinary General Chief complaint: Vaginal Bleeding Stated complaint: vag bleeding after sex, lightheaded, Nausea Time Seen by Provider: 02/13/24 03:14 History of Present Illness HPI Narrative: Patient is a 28-year-old female who presents to the emergency department this evening complaining of heavy vaginal bleeding after intercourse. Patient states that she was having intercourse and believe the something tore. Patient describes it as if she was punched in her vagina. She states that when she had her son she tore during vaginal delivery and describes the sensation is similar. Patient states that she has the Depo shot which she gets for contraception and normally does not get any menstrual cycles but states the bleeding today is heavier than any menses that she has had. Otherwise, patient denies any additional symptoms or concerns at this time Related Data Allergies Allergy/AdvReac Type Severity Reaction Status Date / Time No Known Allergies Allergy Verified 02/13/24 01:19 Review of Systems Review of Systems: All systems are reviewed and are negative unless stated otherwise in the HPI. PMFSH Past Medical History Medical History ADHD Asthma BV (bacterial vaginosis) Cholestasis during in third trimester Depressive disorder HELLP (hemolytic anemia/elev liver enzymes/low platelets in ) History of hyperthyroidism PCOS (polycystic ovarian syndrome) Term Vaginal delivery 04/11/2017139.26 lbs.11 oz.[facility]inalFull [facility] Family [facility] Family History Mother Family history of obesity Family history of osteoporosis Asthma Family history of alcoholism Family history of ulcerative colitis Family history of hepatitis Family history of chronic obstructive pulmonary disease Family history of malignant neoplasm of bone Family history of attention deficit hyperactivity disorder (ADHD) Patient's mother is in good health Father Family history of blood dyscrasia Family history of mental disorder Hypertension Family history of hepatitis Family history of chronic obstructive pulmonary disease Family history of bipolar disorder Sibling Depression Family history of attention deficit hyperactivity disorder (ADHD) Social History Social History Smoking status: Never smoker Second hand tobacco smoke exposure: No Smoking end date: 05/15/12 Alcohol intake: never Substance use: current Living arrangements: with family Occupation/Education: unemployed Gender identity (if verbalized by the patient): Female Sexual Orientation (if Verbalized by the Patient): Straight or Heterosexual Spiritual care concerns: No Agree to blood products: Yes Exam Narrative: General: Alert, awake, afebrile, in no acute distress. HEENT: PERRL, no rhinorrhea, no post nasal drip, oropharynx clear. Cardiovascular: Regular rate and rhythm, no murmurs, rubs or gallops, no peripheral edema. Respiratory: Clear to auscultation bilaterally, no tachypnea, no wheezing, no rhonchi, no rubs, no respiratory distress. Abdomen: Soft, nontender, nondistended, no rebound, no guarding, no peritoneal signs. Pelvic: Exam performed with presence of female nurse skiing teacher revealing normal external female genitalia, speculum examination revealed a vaginal linear laceration measuring approximate 4-5 cm along the patient's left vaginal wall with brisk vaginal bleeding. Musculoskeletal: No joint swelling or deformity, normal muscle tone. Skin: No rashes or petechia, no signs of infection. Neurological: Alert and oriented to person, place, and time. Follows all commands. No focal deficits, speech is clear and fluent. Course Vital Signs Vital signs: Vital Signs Temperature 97.5 F
--- NOTE | 2024-02-13 07:06 | WPDANESEPPF ---
Anes - Initial Pre Proc Eval Procedure: Operation Date: 02/13/24 07:30 Proposed Procedures p Vaginal Laceration Repair - Rajesh Salazar MD Date/Time: 02/13/24 07:06 Surgeon: Rajesh Salazar MD Pre Op Diagnosis: vag bleeding after sex, lightheaded, Nausea Patient Data Age: 28 Gender: F Height: 1.63 m Weight: 56.8 kg Last Vital Signs Temp 36.4 C L 02/13/24 01:22 Pulse 82 02/13/24 05:09 Resp 18 02/13/24 05:09 BP 112/87 02/13/24 05:09 Pulse Ox 99 02/13/24 05:09 O2 Del Method Room Air 02/13/24 01:22 Allergies Allergy/AdvReac Type Severity Reaction Status Date / Time No Known Allergies Allergy Verified 02/13/24 01:19 Home Medications Medication Instructions Recorded Confirmed Type ibuprofen 600 mg tablet 600 mg PO Q6H #90 tabs 11/07/20 Rx polysaccharide iron complex 150 mg 150 mg PO BIDWM #100 caps 11/07/20 Rx iron capsule pseudoephedrine HCl 30 mg tablet 30 mg PO Q4-6H PRN nasal 02/22/22 Rx (Sudogest) congestion #30 tabs lidocaine 5 % topical patch 1 patch topical DAILY #15 ea 07/07/23 Rx Laboratory Tests 02/13/24 02/13/24 01:31 01:32 WBC 7.6 K/mm3 (4.5-10.0) RBC 4.44 M/mm3 (4.2-5.4) Hgb 13.6 D g/dL (12.0-15.0) Hct 40.7 % (37.0-47.0) MCV 91.7 fl (80-100) MCH 30.6 pg (26-34) MCHC 33.4 g/dl (32-36) RDW 12.6 % (11.5-14.5) Plt Count 207 D k/mm3 (150-375) MPV 11.3 H fl (7.4-10.4) Immature Gran % (Auto) 0.4 % (0-0.5) Neut % (Auto) 57.0 % (45.5-73.1) Lymph % (Auto) 33.5 % (18.3-44.2) Dukes % (Auto) 7.4 % (2.6-8.5) Eos % (Auto) 1.3 % (0-4.4) Baso % (Auto) 0.4 % (0.2-1.2) Lymph # (Auto) 2.53 K/mm3 (0.9-3.2) Dukes # (Auto) 0.6 K/mm3 (0.1-0.6) Eos # (Auto) 0.1 K/mm3 (0-0.3) Baso # (Auto) 0.0 K/mm3 (0.0-0.1) Abs Immat Gran (auto) 0.03 K/mm3 (0.00-0.031) Absolute Neuts (auto) 4.3 K/mm3 (1.3-6.7) Absolute Nucleated RBC 0.000 K/mm3 (0.0-0.012) Nucleated RBC % 0.0 % (0.0-0.2) PT 13.9 Seconds (11.1-14.7) INR 1.0 APTT 23.7 Seconds (22.3-36.8) Sodium 137 mmol/L (137-145) Potassium 3.7 mmol/L (3.4-5.0) Chloride 105 mmol/L (98-107) Carbon Dioxide 25 mmol/L (22-30) Anion Gap 7 mmol/L (4-12) BUN 11 D mg/dL (7-17) Creatinine 0.90 mg/dL (0.7-1.0) Estim Creat Clear Calc 70 ml/min Estimated GFR > 60 (59 - ) Glucose 89 mg/dL (65-110) Calcium 9.3 mg/dL (8.4-10.2) Total Bilirubin 0.3 mg/dL (0.2-1.3) AST 24 U/L (14-36) ALT 11 U/L (6-35) Alkaline Phosphatase 65 U/L (38-126) Total Protein 7.0 g/dL (6.3-8.2) Albumin 4.2 g/dL (3.5-5.1) Beta HCG, Quant < 2.39 mIU/ML Blood Type B Positive Antibody Screen Negative Screen TNP Baby's Blood Type Not Reportable Baby's KENJI Not Reportable Doses of RhIg Required 0 Patient hx anesthesia problems: none Family hx anesthesia problems: none Results Review: All pre-operative results and documents have been reviewed as part of the pre-operative evaluation. PMFSH Past Medical History Medical History ADHD Asthma BV (bacterial vaginosis) Cholestasis during in third trimester Depressive disorder HELLP (hemolytic anemia/elev liver enzymes/low platelets in ) History of hyperthyroidism PCOS (polycystic ovarian syndrome) Term Vaginal delivery 04/11/2017139.26 lbs.11 oz.MVaginalFull Term [facility] Family History Family History Mother Family history of obesity Family history of osteoporosis Asthma
--- NOTE | 2024-02-13 07:12 | PM.IMHP ---
H&P: HPI History of Present Illness Date/Time: 02/13/24 07:12 Chief Complaint: Vaginal bleeding and pain Narrative: 28-year-old female who presents emergency department with vaginal bleeding and vaginal pain. She was found have a vaginal laceration that was active agreed to perform repair of vaginal laceration. The patient understands the details of the procedure. The procedure has been explained in detail. She understands the risks. She understands that injuries may occur that result in hospitalization, more surgery, and severe illness. She understands risk of hemorrhage and infection. She denies any chest pain or shortness of breath. She denies any nausea, vomiting, fever, chills. Review of Systems Review of Systems: All systems reviewed & are unremarkable except as noted in HPI and below Constitutional: Constitutional: Denies chills, Denies fatigue, Denies fever(s) and Denies weakness Eyes: Eyes: Denies blurry vision, Denies change in vision, Denies loss of peripheral vision, Denies loss of vision, Denies other visual disturbances and Denies eye pain ENT: Denies vertigo, Denies dizziness, Denies hearing loss, Denies mouth pain, Denies nasal obstruction, Denies neck mass and Denies neck pain Cardiovascular: Cardiovascular: Denies chest pain, Denies diaphoresis, Denies syncope, Denies leg edema and Denies dyspnea Respiratory: Respiratory: Denies chest congestion, Denies cough, Denies hemoptysis, Denies dyspnea and Denies wheezing Gastrointestinal: Gastrointestinal: Denies abdominal pain, Denies constipation, Denies diarrhea, Denies nausea and Denies vomiting Genitourinary: Genitourinary: Denies hematuria, Denies change in libido, Denies nocturia, Denies genital lesions, Denies flank pain and Denies urinary urgency Musculoskeletal: Musculoskeletal: Denies abnormal gait, Denies back pain, Denies myalgias, Denies arthralgias, Denies joint swelling, Denies muscle weakness and Denies neck pain Integumentary/Breasts: Skin/Breast: Denies swelling, Denies breast pain, Denies breast mass, Denies dry skin, Denies nipple discharge, Denies unusual bruising and Denies jaundice Neurologic: Denies Neuro-related abnormal movements, Denies Abnormal speech present, Denies abnormal gait, Denies behavioral changes, Denies confusion, Denies vertigo, Denies dizziness, Denies syncope, Denies loss of vision, Denies memory loss, Denies convulsions and Denies weakness Psychiatric: Psychiatric: Denies abnormal sleep pattern, Denies behavioral changes, Denies change in libido, Denies confusion, Denies depression, Denies anhedonia and Denies memory loss Endocrine: Endocrine: Reports no additional endocrine complaints, Denies change in libido and Denies fatigue Hematologic/Lymphatic: Hematologic/Lymphatic: Reports no additional hematologic/lymphatic complaints Allergic/Immunologic: Allergic/Immunologic: Reports no additional allergic/immunologic complaints and Denies wheezing PMFSH Past Medical History Medical History ADHD Asthma BV (bacterial vaginosis) Cholestasis during in third trimester Depressive disorder HELLP (hemolytic anemia/elev liver enzymes/low platelets in ) History of hyperthyroidism PCOS (polycystic ovarian syndrome) Term Vaginal delivery 04/11/2017139.26 lbs.11 oz.MVaginalFull [facility] Family History Family History Mother Family history of obesity Family history of osteoporosis Asthma Family history of alcoholism Family history of ulcerative colitis Family history of hepatitis Family history of chronic obstructive pulmonary disease Family history of malignant neoplasm of bone Family history of attention deficit hyperactivity disorder (ADHD) Patient's mother is in good health Father Family history of blood dyscrasia Family history
--- NOTE | 2024-02-13 07:15 | WPDHPUPDATE1 ---
History and Physical Update Update Date/Time: 02/13/24 07:15 History and Physical has been reviewed, including an updated exam of the patient. There are NO changes in the patient's condition. Risks, benefits, and alternatives have been discussed and questions answered. Patient agrees to proceed with procedure.
[2024-02-13] MEDS: ceFAZolin SODIUM 1 GM VIAL IV PUSH (07:53)
[2024-02-13] MEDS: LIDO 1%/EPINEPHRINE 1:100,000 50 ML VIAL 10 ML INFILTRATE (08:16)
[2024-02-13] MEDS: LACTATED RINGERS 1,000 ML 30 ML IV CONT ×2 (08:26→09:01)
--- NOTE | 2024-02-13 08:29 | W.PM.PROC2 ---
Procedure Note - Detailed Date of Procedure 02/13/24 Pre-op Diagnosis Active vaginal bleeding, vaginal laceration Post-op Diagnosis Other ( trans rectovaginal laceration) Procedure Performed repair rectovaginal laceration/fistula Surgeon Rajesh Salazar MD Anesthesia General Indications vaginal laceration Findings 3 and half cm trans rectovaginal laceration with active bleeding. Description of Procedure Patient states the operating room. She was prepped and draped in a dorsal lithotomy position after induction general anesthesia. Patient was examined found to have a rectovaginal laceration -To 9 cm. The active bleeding was cauterized. sutures were required to make it completely hemostatic. A running imbricating suture was placed on the back of the rectal surface/serosa. This was a suture that was placed in a running locked fashion. An intervening layer was placed. This was a running suture bringing the rectovaginal septum together. All sutures were 2-0 Vicryl. The vaginal mucosa was then closed with a running locked suture of 2-0 Vicryl. Prior to the procedure the open laceration was cleaned with Betadine. The rectum was cleaned with Betadine as well. The end of the procedure the laceration was injected with lidocaine Estimated Blood Loss 75 Complications No immediate complications Condition Stable
[2024-02-13] MEDS: oxyCODONE HCL (*CRX) 5 MG TAB IR PO (09:53)
== END 2024-02-13 10:25 | disposition home or self-care (01) ==
LOC: ANHED 06:07 → ANHSURGERY 06:21
PROVIDERS: Emergency Provider Emergency Medicine; Visit Provider Obstetrics & Gynecology
PROC: (CPT 57200; principal; 2024-02-13 07:30)
DX: S31.41XA Laceration without foreign body of vagina and vulva, initial encounter (principal); X58.XXXA Exposure to other specified factors, initial encounter; F90.9 Attention-deficit hyperactivity disorder, unspecified type; J45.909 Unspecified asthma, uncomplicated; F32.A Depression, unspecified; G89.18 Other acute postprocedural pain; E03.9 Hypothyroidism, unspecified; E28.2 Polycystic ovarian syndrome; F17.290 Nicotine dependence, other tobacco product, uncomplicated; Z79.1 Long term (current) use of non-steroidal anti-inflammatories (NSAID); Z80.8 Family history of malignant neoplasm of other organs or systems
CPT/HCPCS: 57200; 36415; 80053; 84702; 85025; 85461; 85610; 85730; 86850; 86900; 86901; 99285; A9270; J0690; J1100; J2003; J2004; J2250; J2405; J2704; J3010; J7120